=== PATIENT | female | born 1940 | race Hispanic/Latino ===

== ENCOUNTER 2017-10-03 11:21 | Day surgery (SDC) | payer MEDICARE, OTHER ==
[~2017-10-03 11:21] MED LIST: AK-Dilate OD ONE; AK-Dilate ONE; IOPIDINE OD ONE; IOPIDINE ONE; MYDRIACYL OD ONE; MYDRIACYL ONE
[2017-10-03] MEDS ORDERED: MYDRIACYL OD ONE (12:02)
[2017-10-03] MEDS ORDERED: IOPIDINE OD ONE ×2 (12:02→12:51)
[2017-10-03] MEDS ORDERED: AK-Dilate OD ONE (12:02)
[2017-10-03 16:33] VITALS: BP 132/60
== END 2017-10-03 12:52 | disposition home or self-care (01) ==
LOC: OR 11:21
PROVIDERS: ATTEND Ophthalmology
DX: H26.491 Other secondary cataract, right eye (principal); G43.909 Migraine, unspecified, not intractable, without status migrainosus; K21.9 Gastro-esophageal reflux disease without esophagitis